=== PATIENT | female | born 2000 | race Caucasian/White ===

== ENCOUNTER 2018-03-09 22:11 | Emergency (ER) | payer OTHER, BC ==
[~2018-03-09] VITALS: Ht 162.6 cm; Wt 59.0 kg
[2018-03-09] MEDS ORDERED: NORG1TAB15 (22:21)
[2018-03-09] MEDS ORDERED: METH-313 PO (22:25)
--- NOTE | 2018-03-09 22:26 | ED Back Pain ---
General Chief Complaint: Back Problems Stated Complaint: BACK INJ Source of Information: Patient Exam Limitations: No Limitations History of Present Illness Date Seen by Provider: Mar 09, 2018 Time Seen by Provider: 22:21 Initial Comments To ER with c/o low back pain. 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 The pain does not radiate down either leg. There is been no loss of bowel or bladder control. She has a history of some back pain and she formerly saw a chiropractor. Location: Lumbar Spine, Paraspinous Muscles Timing/Duration: 1-3 Hours Severity: Moderate Pain/Injury Location: Back Associated Symptoms: muscle spasms, lower back pain Allergies and Home Medications Allergies Coded Allergies: amoxicillin (Verified Allergy, Unknown, 03/09/18) clavulanic acid (Verified Allergy, Unknown, 03/09/18) Home Medications Methocarbamol 750 Mg Tablet, 750 MG PO Q6H PRN for PAIN-MODERATE Prescribed by: GOLDY GORDON on 03/09/18 5123 Patient Home Medication List Home Medication List Reviewed: Yes Constitutional: see HPI EENTM: see HPI Respiratory: no symptoms reported Cardiovascular: no symptoms reported Genitourinary: no symptoms reported Musculoskeletal: see HPI, back pain Skin: no symptoms reported Past Fsxchvj-[id number]-[id number] Hx Patient Social History Recent Foreign Travel: No Contact w/Someone Who Travel: No Physical Exam Vital Signs Vital Signs - First Documented 03/09/18 22:21 Temp 97.0 Pulse 74 Resp 18 B/P (MAP) 124/84 O2 Delivery Room Air Capillary Refill : General Appearance: No Apparent Distress, WD/WN HEENT: PERRL/EOMI, TMs Normal Neck: Full Range of Motion, Normal Inspection Respiratory: Normal Breath Sounds, No Accessory Muscle Use, No Respiratory Distress Gastrointestinal: Normal Bowel Sounds, Non Tender, Soft Back: Normal Inspection, Muscle Spasm Neurologic/Psychiatric: Alert, Oriented x3 Skin: Normal Color, Warm/Dry Progress/Results/Core Measures Results/Orders My Orders Orders - GOLDY GORDON APRN Ketorolac Injection (Toradol Injection) (03/09/18 22:30) Orphenadrine Injection (Norflex Injectio (03/09/18 22:30) Medications Given in ED Current Medications Medications Dose Ordered Sig/Fran Route Start Time Stop Time Status Last Admin Dose Admin Ketorolac Tromethamine 60 mg ONCE ONCE IM 03/09/18 22:30 03/09/18 22:31 DC 03/09/18 22:36 60 MG Orphenadrine Citrate 60 mg ONCE ONCE IM 03/09/18 22:30 03/09/18 22:31 DC 03/09/18 22:36 60 MG Vital Signs/I&O 03/09/18 22:21 Temp 97.0 Pulse 74 Resp 18 B/P (MAP) 124/84 O2 Delivery Room Air Departure Impression Primary Impression: Acute low back pain Disposition: HOME, SELF-CARE Condition: Stable Departure-Patient Inst. Decision time for Depature: 22:24 Referrals: NO,LOCAL PHYSICIAN (PCP/Family) Primary Care Physician Patient Instructions: Lumbar Muscle Strain (DC) Add. Discharge Instructions: 1. Follow-up with your regular doctor later this week or next week for recheck. Muscle relaxerin addition to Tylenol and ibuprofen for pain control. Heat to your back will also help.All discharge instructions reviewed with patient and/ or family. Voiced understanding. Scripts Methocarbamol (Robaxin-750) 750 Mg Tablet 750 MG PO Q6H PRN for PAIN-MODERATE, #14 TAB Prov: GOLDY GORDON APRN 03/09/18 Images Torso/Trunk 1 - Tenderness GOLDY GORDON APRN Mar 09, 2018 22:26
[2018-03-09] MEDS ORDERED: ORPHENADRINE 60 MG/2 ML (NORFLEX) AMP IM ONE (22:30)
[2018-03-09] MEDS ORDERED: KETOROLAC 60 MG/2 ML VIAL IM ONE (22:30)
[2018-03-09 22:57] VITALS: BP 124/84
== END 2018-03-09 22:57 | disposition home or self-care (01) ==
LOC: ER 22:13
DX: M54.5 Low back pain (principal); Z88.1 Allergy status to other antibiotic agents; Z88.8 Allergy status to other drugs, medicaments and biological substances
CPT/HCPCS: 96372; 99284

== ENCOUNTER → 2018-03-10 | Outpatient (CLI) | payer OTHER, BC ==
[~2018-03-10] MED LIST: METH-313 PO; NORG1TAB15
--- NOTE | 2018-03-10 14:23 | Diagnostic Imaging Report ---
INDICATION: Lifting injury with low back pain. TIME OF EXAM: 2:18 p.m. FINDINGS: Three views of the lumbar spine were obtained. Curvature and alignment are normal. Vertebral body heights and disc spaces are well maintained. No fracture or subluxation is identified. IMPRESSION: No acute bony abnormality is detected. Dictated by: Dictated on workstation # [id number]
--- NOTE | 2018-03-10 14:23 | Diagnostic Imaging Report ---
INDICATION: Lifting injury and back pain. TIME OF EXAM: 02:22 p.m. Curvature and alignment of the thoracic spine is normal. Vertebral body heights are maintained. No fracture seen. Pedicles and paraspinous line are intact. IMPRESSION: No acute bony abnormality is detected. Dictated by: Dictated on workstation # [id number]
== END ==
LOC: RAD 13:44
PROVIDERS: ATTEND Nurse Practitioner Family
DX: S39.92XA Unspecified injury of lower back, initial encounter (principal); X50.9XXA Other and unspecified overexertion or strenuous movements or postures, initial encounter
CPT/HCPCS: 72072; 72100